=== PATIENT | female | born 1990 | race Caucasian/White ===

== ENCOUNTER 2019-02-20 03:57 | Emergency (ER) | payer BC, OTHER ==
[~2019-02-20] VITALS: Ht 170.2 cm; Wt 74.8 kg
[2019-02-20 04:01] VITALS: BP 111/90
--- NOTE | 2019-02-20 04:15 | NUR ---
PT AMBULATED TO ED BED 06
--- NOTE | 2019-02-20 04:18 | NUR ---
Cristino galan in [facility] - 02/20/19 at 0420 by CUONGJ PT AMBULATED TO BED #6
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
--- NOTE | 2019-02-20 04:25 | NUR ---
LT THIGH ABRASION BLEEDING CONTROLLED, CLEANED WITH NS PAT DRY, NOTED BRUISING AND SWELLING.
[2019-02-20] MEDS ORDERED: KETOROLAC 60 MG/2 ML VIAL IM ONE (04:40)
[2019-02-20 05:10] VITALS: BP 114/84
--- NOTE | 2019-02-20 05:10 | NUR ---
Patient discharged with v/s stable. Written and verbal after care instructions given and explained. Patient alert, oriented and verbalized understanding of instructions. Ambulatory with steady gait. LT THIGH ABRASION CLEANED AND COVERED WITH DRY DRESSING, TOLERATED WELL. WORK NOTE PROVIDED BY MD. All questions addressed prior to discharge. ID band removed. Patient advised to follow up with PMD. Rx of MOTRIN 800MG AND NORCO 5MG-325MG given. Patient educated on indication of medication including possible reaction and side effects. Opportunity to ask questions provided and answered.
== END 2019-02-20 05:10 | disposition home or self-care (01) ==
LOC: MED 03:57
DX: S70.12XA Contusion of left thigh, initial encounter (principal); H91.92 Unspecified hearing loss, left ear; Z98.890 Other specified postprocedural states; V89.2XXA Person injured in unspecified motor-vehicle accident, traffic, initial encounter; Y93.89 Activity, other specified; Y92.89 Other specified places as the place of occurrence of the external cause; Y99.8 Other external cause status
CPT/HCPCS: 81025; 96372; 99283; J1885

== ENCOUNTER 2019-06-30 12:58 | Emergency (ER) | payer BC, OTHER ==
[~2019-06-30] VITALS: Ht 170.2 cm; Wt 70.3 kg
[2019-06-30 13:03] VITALS: BP 126/65
--- NOTE | 2019-06-30 13:05 | NUR ---
TRIAGE COMPLETE. VSS. RETURNED TO LOBBY TO WAIT FOR BED IN ED.
--- NOTE | 2019-06-30 14:38 | NUR ---
PATIENT AMBUALTED TO CHAIR-B AT THIS TIME.
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
[2019-06-30] MEDS ORDERED: ACETAMINOPHEN 325 MG TAB PO ONE (14:50)
[2019-06-30 15:27] VITALS: BP 115/73
== END 2019-06-30 15:27 | disposition home or self-care (01) ==
LOC: MED 12:58
DX: S46.911A Strain of unspecified muscle, fascia and tendon at shoulder and upper arm level, right arm, initial encounter (principal); W01.0XXA Fall on same level from slipping, tripping and stumbling without subsequent striking against object, initial encounter; Y93.89 Activity, other specified; Y92.89 Other specified places as the place of occurrence of the external cause; Y99.8 Other external cause status
CPT/HCPCS: 73030; 99283

== ENCOUNTER 2019-07-27 08:50 | Emergency (ER) | payer OTHER ==
[~2019-07-27] VITALS: Ht 170.2 cm; Wt 72.6 kg
[2019-07-27 08:53] VITALS: BP 128/77
--- NOTE | 2019-07-27 08:57 | NUR ---
PATIENT AMBULATED WITH STEADY GAIT TO BED 5.
--- NOTE | 2019-07-27 09:04 | NUR ---
29 Y/O FEMALE C/O RT SIDED BACK PAIN BELOW RIBS THAT STARTED YESTERDAY. STATES PAIN IS WORSE WITH INSPIRATION, COUGH, SNEEZING. PAIN WITH AMBULATION. DENIES TRAUMA/INJURY. DENIES URINARY SYMPTOMS. TOOK IBUPROFEN LAST NIGHT WITH NO PAIN RELIEF. NO MEDS TAKEN TODAY. PT SITTING UPRIGHT IN BED POSITIONED FOR COMFORT. VSS. MEDHX: DENIES ALLERGIES: NKA
[2019-07-27] MEDS ORDERED: KETOROLAC 30 MG/ML VIAL IM ONE (09:35)
--- NOTE | 2019-07-27 09:35 | NUR ---
PT TO RADIOLOGY VIA WHEELCHAIR.
--- NOTE | 2019-07-27 09:47 | NUR ---
PT RETURNED FROM RADIOLOGY VIA WHEELCHAIR.
--- NOTE | 2019-07-27 10:11 | NUR ---
STATES NO DECREASE IN PAIN AFTER MEDICATION. 03/[address] SANTOS MADE AWARE
[2019-07-27] MEDS ORDERED: HYDROcodone/APAP 5/325 MG 1 TAB TAB PO ONE (10:15)
[2019-07-27 10:49] VITALS: BP 128/77
--- NOTE | 2019-07-27 10:49 | NUR ---
Patient discharged with v/s stable. Written and verbal after care instructions given and explained. Patient alert, oriented and verbalized understanding of instructions. Ambulatory with steady gait. All questions addressed prior to discharge. ID band removed. Patient advised to follow up with PMD. Rx of CODEINE/PROMETHAZINE AND IBURPROFEN given. Patient educated on indication of medication including possible reaction and side effects. Opportunity to ask questions provided and answered.
== END 2019-07-27 10:49 | disposition home or self-care (01) ==
LOC: MED 08:50
DX: R07.89 Other chest pain (principal)
CPT/HCPCS: 71101; 81002; 81025; 96372; 99283; J1885

== ENCOUNTER 2021-04-14 19:32 | Emergency (ER) | payer OTHER ==
[~2021-04-14] VITALS: Ht 170.2 cm; Wt 72.6 kg
[2021-04-14 19:51] VITALS: BP 127/75
--- NOTE | 2021-04-14 20:08 | NUR ---
PT AMBULATED TO BED 08.
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
--- NOTE | 2021-04-14 20:50 | NUR ---
PATIENT RETURNED FROM CT LAB. PATIENT IN STABLE CONDITION. VSS. NO SOB NOTED, NO PAIN STATED. ALL SAFETY MEASURES IN PLACE. WILL CONTINUE TO MONITOR.
[2021-04-14] MEDS ORDERED: DEXAMETHASONE 10 MG/ML VIAL IVP ONE (21:05)
[2021-04-14] MEDS ORDERED: diphenhydrAMINE 50 MG/ML VIAL IVP ONE (21:05)
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
--- NOTE | 2021-04-14 23:25 | NUR ---
IV removed, catheter intact and site benign. Applied folded 4x4 gauze and tape to stop bleeding.
--- NOTE | 2021-04-14 23:31 | NUR ---
Patient discharged with v/s stable. Written and verbal after care instructions given and explained. Patient verbalized understanding. Ambulatory with steady gait. All questions addressed prior to discharge. Advised to follow up with PMD.
== END 2021-04-14 23:30 | disposition home or self-care (01) ==
LOC: MED 19:32
DX: R22.1 Localized swelling, mass and lump, neck (principal); R13.10 Dysphagia, unspecified; R51.9 Headache, unspecified; R42 Dizziness and giddiness
CPT/HCPCS: 70491; 81002; 81025; 96374; 96375; 99285; J1100; J1200; Q9967

== ENCOUNTER 2021-04-15 23:20 | Emergency (ER) | payer OTHER ==
[~2021-04-15] VITALS: Ht 170.2 cm; Wt 77.1 kg
[2021-04-15 23:53] VITALS: BP 130/72
[2021-04-16] MEDS ORDERED: ACETAMINOPHEN EXTRA STRENGTH 500 MG TAB ONE (00:04)
[2021-04-16] MEDS ORDERED: ACETAMINOPHEN EXTRA STRENGTH 500 MG TAB PO ONE (00:05)
--- NOTE | 2021-04-16 00:08 | NUR ---
PT AMBULATORY TO LOBBY TO A/W BED
--- NOTE | 2021-04-16 00:18 | NUR ---
PT AMBULATED TO LOBBY. Addendum: 04/16/21 at 0019 by [email or web address] AMBULATED TO BED #4
[2021-04-16] MEDS ORDERED: PENICILLIN G BENZATHINE L-A 1.2 MU/2 ML SYR IM ONE (01:25)
[2021-04-16] MEDS ORDERED: KETOROLAC 60 MG/2 ML VIAL IM ONE (01:25)
[2021-04-16] MEDS ORDERED: PRED20TA5 PO (01:41)
[2021-04-16] MEDS ORDERED: IBUP-2213 PO (01:41)
[2021-04-16 02:00] VITALS: BP 130/72
--- NOTE | 2021-04-16 02:00 | NUR ---
Patient discharged with v/s stable. Written and verbal after care instructions given and explained. Patient alert, oriented and verbalized understanding of instructions. Ambulatory with steady gait. All questions addressed prior to discharge. ID band removed. Patient advised to follow up with PMD. Rx of IBUPROFEN, PREDNISOLONE given. Patient educated on indication of medication including possible reaction and side effects. Opportunity to ask questions provided and answered.
== END 2021-04-16 02:00 | disposition home or self-care (01) ==
LOC: MED 23:20
DX: J02.0 Streptococcal pharyngitis (principal); Z98.890 Other specified postprocedural states
CPT/HCPCS: 96372; 99284; J0561; J1885

== ENCOUNTER 2021-08-24 03:25 | Emergency (ER) | payer OTHER ==
[~2021-08-24] VITALS: Ht 170.2 cm; Wt 74.8 kg
[~2021-08-24 03:25] MED LIST: IBUP-2213 PO; PRED20TA5 PO
[2021-08-24 03:32] VITALS: BP 119/73
--- NOTE | 2021-08-24 04:09 | NUR ---
31 YO F BIB SELF WITH C/C OF 8/10 ABD PAIN X3HRS. PT STATES IT STARTED AT [facility], AND NOW SIDES OF ABD. +NAUSEA -VOMITING +LOOSE STOOLS. PT STATES SHE SAW BLOOD IN STOOL. ABD IS NONDISTENDED. BOWEL SOUNDS ACTIVE X4 QUADS. DENIES HX, AND RX ALLERGIES:IODINE
[2021-08-24] MEDS ORDERED: KETOROLAC 30 MG/ML VIAL ONE (05:39)
[2021-08-24] MEDS ORDERED: ALUMINUM HYD/MAG/SIMETHICONE 30 ML UDC ONE (05:40)
[2021-08-24] MEDS ORDERED: FAMOTIDINE 20 MG TAB ONE (05:41)
[2021-08-24 05:42] LABS: BASOPHILS % (AUTO) 0.3 % (0.0-2.0); EOSINOPHILS # (AUTO) 0.3 K/uL (0-0.4); EOSINOPHILS % (AUTO) 2.4 % (0.0-4.0); HEMATOCRIT 36.3 % (36-48); HEMOGLOBIN 12.2 g/dL (12.0-16.0); LYMPHOCYTES # (AUTO) 1.5 K/uL (2.5-16.5); LYMPHOCYTES % (AUTO) 11.4 % (20.5-51.1); MEAN CORPUSCULAR HEMOGLOBIN 29 pg (27-31); MEAN CORPUSCULAR HGB CONC 34 g/dL (33-37); MEAN CORPUSCULAR VOLUME 84.9 fL (80-94); MONOCYTES # (AUTO) 0.5 K/uL (0.8-1.0); MONOCYTES % (AUTO) 3.7 % (1.7-9.3); NEUTROPHILS # (AUTO) 10.9 K/uL (1.8-7.7); NEUTROPHILS % (AUTO) 82.2 % (42.2-75.2); PLATELET COUNT (AUTO) 231 K/uL (140-450); RED BLOOD CELL COUNT(AUTO) 4.28 MIL/uL (4.20-5.40); WHITE BLOOD COUNT (AUTO) 13.3 K/uL (4.8-10.8)
[2021-08-24] MEDS: ALUMINUM HYD/MAG/SIMETHICONE 30 ML UDC PO ONE (05:49)
[2021-08-24] MEDS: FAMOTIDINE 20 MG TAB PO ONE (05:49)
[2021-08-24] MEDS: KETOROLAC 30 MG/ML VIAL IM ONE (05:49)
--- NOTE | 2021-08-24 06:11 | NUR ---
PT GIVEN 2 CUPS OF WATER AND CRANBERRY JUICE. PT STATES SHE IS UNABLE TO GIVE URINE AT THIS TIME.
[2021-08-24 06:22] LABS: CARBON DIOXIDE 26.9 mmol/L (21-32); CREATININE 0.6 mg/dL (0.6-1.3); POTASSIUM 3.9 mmol/L (3.5-5.1); TOTAL BILIRUBIN 0.4 mg/dL (0.0-1.0)
--- NOTE | 2021-08-24 07:25 | NUR ---
report given to mani rodriguez. transfer of care at this time.
--- NOTE | 2021-08-24 07:27 | NUR ---
REPORT RECEIVED FROM KURT DELGADO FOR TRANSFER OF CARE.
[2021-08-24 07:52] LABS: ALBUMIN 3.5 g/dL (3.4-5.0)
--- NOTE | 2021-08-24 08:08 | NUR ---
PT RETURNED TO BED [address] [facility] [facility]
--- NOTE | 2021-08-24 08:13 | NUR ---
Patient appears to be resting comfortably in bed. Vital Signs within normal limits. Respirations even and unlabored.
[2021-08-24] MEDS ORDERED: MAG-27 PO (09:14)
[2021-08-24] MEDS ORDERED: BEN10 PO (09:14)
[2021-08-24 09:36] VITALS: BP 111/74
--- NOTE | 2021-08-24 09:36 | NUR ---
Patient discharged with v/s stable. Written and verbal after care instructions given and explained. Patient alert, oriented and verbalized understanding of instructions. Ambulatory with steady gait. All questions addressed prior to discharge. ID band removed. Patient advised to follow up with PMD. Rx of BENTYL AND MYLANTA given. Patient educated on indication of medication including possible reaction and side effects. Opportunity to ask questions provided and answered.
== END 2021-08-24 09:36 | disposition home or self-care (01) ==
LOC: MED 03:25
DX: R10.84 Generalized abdominal pain (principal); R11.0 Nausea; J45.909 Unspecified asthma, uncomplicated; Z79.899 Other long term (current) drug therapy
CPT/HCPCS: 36415; 74176; 80053; 81002; 81025; 83690; 85025; 96372; 99285; J1885

== ENCOUNTER 2022-03-18 01:59 | Emergency (ER) | payer OTHER ==
[~2022-03-18] VITALS: Ht 167.6 cm; Wt 74.8 kg
[~2022-03-18 01:59] MED LIST changes: +BEN10 PO; +MAG-27 PO
[2022-03-18 02:06] VITALS: BP 129/78
[2022-03-18] MEDS ORDERED: diphenhydrAMINE 50 MG/ML VIAL IVP ONE (02:45)
[2022-03-18] MEDS ORDERED: methylPREDNISolone SS 125 MG in WATER STERILE 2 ML IV ONE (02:45)
[2022-03-18] MEDS ORDERED: PRED20TA5 PO (04:57)
[2022-03-18] MEDS ORDERED: FEXO180T82 PO (04:57)
[2022-03-18 05:00] VITALS: BP 128/77
== END 2022-03-18 05:00 | disposition home or self-care (01) ==
LOC: MED 01:59
DX: L50.9 Urticaria, unspecified (principal); J45.909 Unspecified asthma, uncomplicated; Z88.1 Allergy status to other antibiotic agents; Z79.899 Other long term (current) drug therapy
CPT/HCPCS: 96374; 99283; J1200